=== PATIENT | male | born 1985 | race Caucasian/White ===

== ENCOUNTER 2017-04-12 15:46 | Emergency (ER) | payer BC ==
[2017-04-12] MEDS ORDERED: Lidocaine 1% 5ml(IM or SUTURE)(PAIN CLINIC) IJ ONE (15:52)
[2017-04-12] MEDS ORDERED: DIPH,PERTUSS(ACELL),TET VAC/PF 0.5 ML DISP.SYRIN IM ONE (15:54)
--- NOTE | 2017-04-12 15:59 | ED Physician Documentation ---
General Adult - HISTORIAN Historian: patient - HPI Chief Complaint: General Adult Onset: minutes Further Comments: yes (31 year old male patient presents with laceration to right 3rd finger, cut with kitchen knife. Last tetanus at age 14.) - ROS CONST: no problems EYES/ENT: none CVS/RESP: none GI/: none MS/SKIN/LYMPH: none NEURO/PSYCH: denies: headache - PAST HX Past History: none Other History: none Surgeries/Procedures: other (Right AC repair) Immunizations: tetanus (given in ER) Allergies/Adverse Reactions: Allergies Allergy/AdvReac Type Severity Reaction Status Date / Time cefaclor [From Ceclor] Allergy Verified 04/12/17 15:59 Home Medications: Ambulatory Orders Medication Instructions Recorded NK [NK] 04/12/17 - SOCIAL HX Smoking History: cigarettes - FAMILY HX Family History: No - REVIEWED ASSESSMENTS Nursing Assessment Reviewed: Yes Vitals Reviewed: Yes Progress - Progress Progress: Pressure held, hemostasis achieved. Dressing applied by nursing, tetanus updated. 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 Cover with non-adherent bandage if able. Call your doctor for any signs of symptom of infection redness, drainage, pain. Home Medications: Ambulatory Orders NK [NK] 04/12/17 Condition: Stable Disposition: 01 HOME, SELF-CARE Decision to Admit: NO Decision Time: 15:58
[2017-04-12 16:29] VITALS: BP 148/68
== END 2017-04-12 16:28 | disposition home or self-care (01) ==
LOC: ED 15:46
DX: S61.209A Unspecified open wound of unspecified finger without damage to nail, initial encounter (principal); X58.XXXA Exposure to other specified factors, initial encounter; Y93.9 Activity, unspecified; Y99.9 Unspecified external cause status
CPT/HCPCS: 90471; 90715; 99283